=== PATIENT | female | born 1980 | race Caucasian/White ===

== ENCOUNTER 2017-05-12 11:53 | Inpatient (IN) | payer OTHER ==
[~2017-05-12] VITALS: Ht 160 cm; Wt 70.5 kg
[2017-05-12] MEDS ORDERED: LACTATED RINGERS 1,000 ML IV SCH ×2 (12:45→21:15)
[2017-05-12] MEDS ORDERED: D5%-LACTATED RINGERS 1,000 ML IV SCH (12:45)
[2017-05-12] MEDS ORDERED: OXYTOCIN 30U/ 0.9% NaCL 500ML 500 ML IV ONE (12:45)
[2017-05-12] MEDS ORDERED: FENTANYL PF 100 MCG/2ML IV PRN (13:00)
[2017-05-12] MEDS ORDERED: ONDANSETRON 2MG/ML, 2ML IVPush PRN (13:00)
[2017-05-12] MEDS ORDERED: CALCIUM CARBONATE 500 MG TAB.CHEW PO PRN (13:00)
[2017-05-12] MEDS ORDERED: FENTANYL PF 100 MCG/2ML IVPush PRN (13:00)
[2017-05-12 13:17] LABS: HEMATOCRIT 44.8 % (34.6-47.8); HEMOGLOBIN 14.9 g/dL (11.7-16.4); WHITE BLOOD COUNT 18.4 x10^3/uL (3.4-10)
[2017-05-12 13:32] VITALS: BP 131/80
[2017-05-12] MEDS ORDERED: LIDOCAINE 1%, 20ML ONE (13:35)
[2017-05-12] MEDS ORDERED: OXYTOCIN 30U/ 0.9% NaCL 500ML 500 ML ONE (13:36)
[2017-05-12] MEDS ORDERED: MISOPROSTOL 200 MCG TABLET ONE (13:36)
[2017-05-12] MEDS ORDERED: NEWBORN KIT ONE (13:36)
[2017-05-12 13:40] LABS: DIFF TOTAL CELLS COUNTED 100 CELL DIFF
[2017-05-12 13:42] LABS: VERIFY COUNTS? YES
[2017-05-12] MEDS ORDERED: PLEASE ENTER HEIGHT AND WEIGHT MC SCH (14:00)
[2017-05-12] MEDS ORDERED: SODIUM CHLORIDE FLUSH 10ML SYR IVF ONE (14:30)
[2017-05-12] MEDS ORDERED: SODIUM CHLORIDE FLUSH 10ML SYR IVF PRN (14:30)
[2017-05-12] MEDS ORDERED: LEVO75TA PO (14:34)
[2017-05-12] MEDS ORDERED: PREN1TAB25 PO (14:35)
[2017-05-12] MEDS ORDERED: FEXO1TAB25 PO (14:35)
[2017-05-12] MEDS ORDERED: OMEG1CAP34 PO (14:37)
[2017-05-12] MEDS ORDERED: FEXO60TA24 PO (14:45)
[2017-05-12] MEDS ORDERED: ONDANSETRON 2MG/ML, 2ML ONE (17:40)
[2017-05-12 19:36] VITALS: BP 128/80
[2017-05-12] MEDS ORDERED: FENTANYL PF 100 MCG/2ML ONE (19:54)
[2017-05-12] MEDS ORDERED: FENTANYL/BUPIV./NS/PF 250 ML EPIDCONT ONE (20:49)
[2017-05-12] MEDS ORDERED: LIDOCAINE/PF 1.5%-EPI 1:200K, 30ML ONE (20:49)
[2017-05-12] MEDS ORDERED: FENTANYL/BUPIV./NS/PF 250 ML EPIDCONT SCH (21:15)
[2017-05-12] MEDS ORDERED: LACTATED RINGERS 1,000 ML IVBOLUS PRN (21:30)
[2017-05-12] MEDS ORDERED: METOCLOPRAMIDE 5 MG/ML, 2ML ONE (22:30)
[2017-05-12] MEDS ORDERED: SODIUM CITRATE/CITRIC ACID 30 ML UDC ONE (22:31)
[2017-05-12] MEDS ORDERED: OXYTOCIN 30U/ 0.9% NaCL 500ML 500 ML IV SCH (23:39)
[2017-05-12] MEDS ORDERED: LIDOCAINE/MPF 2%-EPI 1:200K, 20 ML ONE (23:41)
[2017-05-12] MEDS ORDERED: HYDROmorphone 2 MG/ML, 1ML ONE (23:44)
[2017-05-13] MEDS ORDERED: METOCLOPRAMIDE 5 MG/ML, 2ML IV ONE
[2017-05-13] MEDS ORDERED: SODIUM CITRATE/CITRIC ACID 30 ML UDC PO ONE
[2017-05-13] MEDS ORDERED: MEPERIDINE/PF 50 MG/ML ONE (00:22)
[2017-05-13] MEDS ORDERED: OXYTOCIN 30U/ 0.9% NaCL 500ML 500 ML IV SCH (01:24)
[2017-05-13] MEDS ORDERED: LACTATED RINGERS 1,000 ML IV SCH ×2 (01:24)
[2017-05-13] MEDS ORDERED: ONDANSETRON 2MG/ML, 2ML IV PRN (01:30)
[2017-05-13] MEDS ORDERED: ACETAMINOPHEN 325 MG TABLET PO PRN (01:30)
[2017-05-13] MEDS ORDERED: MISOPROSTOL 200 MCG TABLET SL PRN (01:30)
[2017-05-13] MEDS ORDERED: CARBOPROST TROMETHAMINE 250 MCG/ML, 1ML IM PRN (01:30)
[2017-05-13] MEDS ORDERED: METOCLOPRAMIDE 5 MG/ML, 2ML IV PRN (01:30)
[2017-05-13] MEDS ORDERED: METHYLERGONOVINE 0.2 MG/ML IM PRN (01:30)
[2017-05-13] MEDS ORDERED: CALCIUM CARBONATE 500 MG TAB.CHEW PO PRN (01:30)
[2017-05-13] MEDS: OXYcodone/APAP 5/325MG TABLET PO PRN ×5 (03:23→20:39)
[2017-05-13 05:29] VITALS: BP 120/80
[2017-05-13 07:30] VITALS: BP 111/71
[2017-05-13] MEDS: DOCUSATE 100 MG CAPSULE PO PRN ×2 (07:33→20:39)
[2017-05-13] MEDS: PRENATAL VIT/IRON/FA 1 EACH TABLET PO SCH (09:00)
[2017-05-13] MEDS ORDERED: PRENATAL VIT/IRON/FA 1 EACH TABLET PO SCH (09:00)
[2017-05-13] MEDS ORDERED: NAPROXEN 250 MG TABLET PO PRN (09:30)
[2017-05-13 09:36] LABS: HEMATOCRIT 37.6 % (34.6-47.8); HEMOGLOBIN 12.6 g/dL (11.7-16.4); WHITE BLOOD COUNT 21.4 x10^3/uL (3.4-10)
[2017-05-13 15:11] VITALS: BP 132/78
[2017-05-13 20:45] VITALS: BP 119/72
[2017-05-14] MEDS: OXYcodone/APAP 5/325MG TABLET PO PRN ×3 (00:56→20:23)
[2017-05-14] MEDS: LEVOTHYROXINE 75 MCG TABLET PO SCH (05:06)
[2017-05-14 08:00] VITALS: BP 106/66
[2017-05-14] MEDS: DOCUSATE 100 MG CAPSULE PO PRN ×2 (08:56→20:24)
[2017-05-14] MEDS: OXYcodone/APAP 10/325MG TABLET PO PRN ×3 (08:56→16:37)
[2017-05-14] MEDS: PRENATAL VIT/IRON/FA 1 EACH TABLET PO SCH (09:00)
[2017-05-14 19:30] VITALS: BP 124/82
[2017-05-14] MEDS: SIMETHICONE 80 MG CHEW TAB PO PRN (20:24)
[2017-05-15] MEDS: OXYcodone/APAP 10/325MG TABLET PO PRN (02:37)
[2017-05-15] MEDS: SIMETHICONE 80 MG CHEW TAB PO PRN ×2 (02:45→08:30)
[2017-05-15] MEDS: LEVOTHYROXINE 75 MCG TABLET PO SCH (05:40)
[2017-05-15] MEDS: OXYcodone/APAP 5/325MG TABLET PO PRN ×2 (07:12→11:22)
[2017-05-15] MEDS: DOCUSATE 100 MG CAPSULE PO PRN (07:12)
[2017-05-15 07:15] VITALS: BP 119/76
[2017-05-15] MEDS ORDERED: OXYC-229 PO (07:52)
[2017-05-15] MEDS ORDERED: DOCU-30 PO (07:53)
[2017-05-15] MEDS: PRENATAL VIT/IRON/FA 1 EACH TABLET PO SCH (09:00)
== END 2017-05-15 12:55 | disposition home or self-care (01) | DRG 766 ==
LOC: LDOP 11:53 → LDIP 12:45 → 2NW 05-13 02:32
PROVIDERS: ADMIT Obstetrics & Gynecology Maternal & Fetal Medicine; ATTEND Obstetrics & Gynecology Maternal & Fetal Medicine
PROC: 10D00Z1 Extraction of Products of Conception, Low, Open Approach (ICD-10-PCS; principal; 2017-05-13)
DX: O76 Abnormality in fetal heart rate and rhythm complicating labor and delivery (principal); E03.9 Hypothyroidism, unspecified; O99.284 Endocrine, nutritional and metabolic diseases complicating childbirth; O48.0 Post-term pregnancy; O77.0 Labor and delivery complicated by meconium in amniotic fluid; Z37.0 Single live birth; Z3A.41 41 weeks gestation of pregnancy; Z79.899 Other long term (current) drug therapy; Z88.6 Allergy status to analgesic agent
CPT/HCPCS: 36415; 82803; 85025; 86850; 86900; 88305; 89060; J1170; J2175; J2405; J3010; J7121; Q0114

== ENCOUNTER → 2018-02-27 | Outpatient (CLI) | payer OTHER ==
[~2018-02-27] MED LIST: DOCU-131 PO; FEXO1TAB25 PO; FEXO60TA24 PO; LEVO75TA PO; OMEG1CAP34 PO; OXYC-307 PO; PREN1TAB25 PO
[2018-02-27 08:09] LABS: BASOPHILS % (AUTO) 2 % (0-1); EOSINOPHILS # (AUTO) 0.34 x10^3/uL (0-0.4); EOSINOPHILS % (AUTO) 5 % (1-7); LYMPHOCYTES # (AUTO) 2.34 x10^3/uL (1-3.4); LYMPHOCYTES % (AUTO) 35 % (22-44); MD NO; MEAN CORPUSCULAR HEMOGLOBIN 32.8 pg (27.0-34.8); MEAN CORPUSCULAR HGB CONC 34.4 g/dL (32.4-35.8); MEAN CORPUSCULAR VOLUME 95.4 fL (80-100); MEAN PLATELET VOLUME 8.1 fL (7.4-10.4); MONOCYTES # (AUTO) 0.46 x10^3/uL (0.2-0.8); MONOCYTES % (AUTO) 7 % (2-9); NEUTROPHILS # (AUTO) 3.52 x10^3/uL (1.8-6.8); NEUTROPHILS % (AUTO) 52 % (42-75); PLATELET COUNT 284 x10^3/uL (130-400); RED BLOOD COUNT 4.42 x10^6/uL (3.82-5.3); RED CELL DISTRIBUTION WIDTH 12.9 % (9.6-15.2)
[2018-02-27 08:20] LABS: ALANINE AMINOTRANSFERASE 33 U/L (12-78); ALBUMIN 3.8 g/dL (3.4-5.0); ANION GAP 6 mmol/L (5-15); CALCIUM 8.9 mg/dL (8.5-10.1); CHLORIDE 111 mmol/L (98-107); CHOLESTEROL, TOTAL 185 mg/dL (140-239); CREATININE 0.82 mg/dL (0.55-1.02)
[2018-02-27 08:22] LABS: ALKALINE PHOSPHATASE 79 U/L (45-117); BILIRUBIN,TOTAL 0.4 mg/dL (0.2-1.0); CHOL/HDL RATIO 2.7; HDL CHOL % 37 % (28-40); HDL CHOLESTEROL (DIRECT) 68 mg/dL (40-60); LDL CHOLESTEROL,CALCULATED 106 mg/dL (54-169); LDL/HDL RATIO 1.6 (0.5-3.0); TOTAL PROTEIN 7.1 g/dL (6.4-8.2); TRIGLYCERIDES 55 mg/dL (50-200); VLDL CHOLESTEROL 11 mg/dL (0-25)
== END | disposition home or self-care (01) ==
LOC: LAB 07:52
PROVIDERS: ATTEND Physician Assistant Medical
DX: Z00.01 Encounter for general adult medical examination with abnormal findings (principal); E03.9 Hypothyroidism, unspecified
CPT/HCPCS: 36415; 80053; 80061; 85025

== ENCOUNTER → 2018-11-21 | Outpatient (CLI) | payer OTHER | END | disposition home or self-care (01) | LOC: LAB 15:39 | PROVIDERS: ATTEND Physician Assistant Medical | DX: E03.9 Hypothyroidism, unspecified (principal); R79.89 Other specified abnormal findings of blood chemistry | CPT/HCPCS: 36415; 84443 ==

== ENCOUNTER 2019-05-02 15:41 | Outpatient (CLI) | payer OTHER | END 2019-05-02 23:59 | disposition home or self-care (01) | LOC: LAB 15:41 | PROVIDERS: ATTEND Family Medicine | DX: E03.9 Hypothyroidism, unspecified (principal) | CPT/HCPCS: 36415; 84443 ==

== ENCOUNTER → 2019-09-20 | Outpatient (CLI) | payer OTHER ==
[2019-09-20 09:32] LABS: BASOPHILS # (AUTO) 0.04 x10^3/uL (0-0.1); BASOPHILS % (AUTO) 0 % (0-1); EOSINOPHILS # (AUTO) 0.33 x10^3/uL (0-0.4); EOSINOPHILS % (AUTO) 3 % (1-7); LYMPHOCYTES # (AUTO) 1.77 x10^3/uL (1-3.4); LYMPHOCYTES % (AUTO) 13 % (22-44); MD NO; MEAN CORPUSCULAR HEMOGLOBIN 34.2 pg (27.0-34.8); MEAN CORPUSCULAR HGB CONC 33.5 g/dL (32.4-35.8); MEAN CORPUSCULAR VOLUME 102.1 fL (80-100); MEAN PLATELET VOLUME 8.1 fL (7.4-10.4); MONOCYTES # (AUTO) 0.62 x10^3/uL (0.2-0.8); MONOCYTES % (AUTO) 5 % (2-9); NEUTROPHILS # (AUTO) 10.46 x10^3/uL (1.8-6.8); NEUTROPHILS % (AUTO) 79 % (42-75); PLATELET COUNT 279 x10^3/uL (130-400); RED CELL DISTRIBUTION WIDTH 14.3 % (9.6-15.2)
== END | disposition home or self-care (01) ==
LOC: LAB 08:49
PROVIDERS: ATTEND Obstetrics & Gynecology Maternal & Fetal Medicine
DX: Z34.82 Encounter for supervision of other normal pregnancy, second trimester (principal); Z3A.00 Weeks of gestation of pregnancy not specified
CPT/HCPCS: 36415; 82950; 85025; 86592

== ENCOUNTER 2019-12-29 10:11 | Inpatient (IN) | payer OTHER ==
[~2019-12-29] VITALS: Ht 160 cm; Wt 72.7 kg
[2019-12-29] MEDS ORDERED: LACTATED RINGERS 1,000 ML IV SCH (10:52)
[2019-12-29] MEDS ORDERED: LACTATED RINGERS 1,000 ML IVBOLUS ONE (11:00)
[2019-12-29] MEDS ORDERED: METOCLOPRAMIDE 5 MG/ML, 2ML IV ONE (11:00)
[2019-12-29] MEDS ORDERED: SODIUM CITRATE/CITRIC ACID 30 ML UDC PO ONE (11:00)
[2019-12-29] MEDS ORDERED: NEWBORN KIT ONE (11:01)
[2019-12-29] MEDS ORDERED: METOCLOPRAMIDE 5 MG/ML, 2ML ONE (11:02)
[2019-12-29] MEDS ORDERED: SODIUM CITRATE/CITRIC ACID 30 ML UDC ONE (11:02)
[2019-12-29] MEDS ORDERED: OXYTOCIN 30U/ 0.9% NaCL 500ML 500 ML ONE (11:02)
[2019-12-29 11:25] LABS: BASOPHILS # (AUTO) 0.04 x10^3/uL (0-0.1); BASOPHILS % (AUTO) 0 % (0-1); EOSINOPHILS # (AUTO) 0.06 x10^3/uL (0-0.4); EOSINOPHILS % (AUTO) 1 % (1-7); LYMPHOCYTES % (AUTO) 17 % (22-44); MD NO; MEAN CORPUSCULAR HEMOGLOBIN 34.2 pg (27.0-34.8); MEAN CORPUSCULAR HGB CONC 33.7 g/dL (32.4-35.8); MEAN CORPUSCULAR VOLUME 101.6 fL (80-100); MEAN PLATELET VOLUME 10.2 fL (7.4-10.4); MONOCYTES # (AUTO) 0.61 x10^3/uL (0.2-0.8); MONOCYTES % (AUTO) 5 % (2-9); NEUTROPHILS # (AUTO) 9.25 x10^3/uL (1.8-6.8); NEUTROPHILS % (AUTO) 77 % (42-75); PLATELET COUNT 213 x10^3/uL (130-400); RED BLOOD COUNT 4.11 x10^6/uL (3.82-5.3); RED CELL DISTRIBUTION WIDTH 14.3 % (9.6-15.2)
[2019-12-29] MEDS ORDERED: FENTANYL PF 100 MCG/2ML ONE (11:46)
[2019-12-29] MEDS ORDERED: OXYTOCIN 10 UNITS/ML, 1ML ONE ×4 (11:47)
[2019-12-29] MEDS ORDERED: CEFAZOLIN 1,000 MG ONE ×2 (11:47)
[2019-12-29] MEDS ORDERED: EPHEDRINE 50 MG/ML, 1ML ONE (12:22)
[2019-12-29] MEDS ORDERED: KETOROLAC 30 MG/1 ML ONE (12:52)
[2019-12-29] MEDS ORDERED: EPHEDRINE 50 MG/ML, 1ML IVPush PRN (13:30)
[2019-12-29] MEDS ORDERED: MORPHINE SULFATE 4 MG/ML, 1ML IVPush PRN (13:30)
[2019-12-29] MEDS ORDERED: LABETALOL 5MG/ML, 20ML IV PRN (13:30)
[2019-12-29] MEDS ORDERED: OXYcodone 5 MG/5 ML ORAL.SOL UDC PO PRN (13:30)
[2019-12-29] MEDS ORDERED: METHYLERGONOVINE 0.2 MG/ML IM PRN (13:30)
[2019-12-29] MEDS ORDERED: DIPH,PERTUSS(ACELL),TET VAC/PF NC IM-VACC PRN (13:30)
[2019-12-29] MEDS ORDERED: CARBOPROST TROMETHAMINE 250 MCG/ML, 1ML IM PRN (13:30)
[2019-12-29] MEDS ORDERED: OXYcodone/APAP 5/325MG TABLET PO PRN (13:30)
[2019-12-29] MEDS ORDERED: FENTANYL PF 100 MCG/2ML IV PRN (13:30)
[2019-12-29] MEDS ORDERED: DIPHENHYDRAMINE 50 MG/ML, 1ML IVPush PRN (13:30)
[2019-12-29] MEDS ORDERED: ACETAMINOPHEN 325 MG TABLET PO PRN ×3 (13:30)
[2019-12-29] MEDS ORDERED: ONDANSETRON 2MG/ML, 2ML IV PRN ×2 (13:30)
[2019-12-29] MEDS ORDERED: PROMETHAZINE 25 MG/ML, 1ML IV PRN (13:30)
[2019-12-29] MEDS ORDERED: DEXAMETHASONE 4 MG/ML, 1ML IV PRN (13:30)
[2019-12-29] MEDS ORDERED: MISOPROSTOL 200 MCG TABLET PR PRN (13:30)
[2019-12-29] MEDS ORDERED: RHOGAM FROM BLOOD BANK 1 NOTE EA IM/IV ONE (13:30)
[2019-12-29] MEDS: OXYTOCIN 30U/ 0.9% NaCL 500ML 500 ML IV SCH ×2 (14:06→23:11)
[2019-12-29 15:30] VITALS: BP 122/78
[2019-12-29] MEDS: OXYcodone/APAP 5/325MG TABLET PO PRN (18:08)
[2019-12-29] MEDS: KETOROLAC 30 MG/1 ML IVPush SCH (19:33)
[2019-12-29 20:06] VITALS: BP 123/71
[2019-12-29 20:44] LABS: BASOPHILS # (AUTO) 0.03 x10^3/uL (0-0.1); BASOPHILS % (AUTO) 0 % (0-1); EOSINOPHILS # (AUTO) 0.28 x10^3/uL (0-0.4); EOSINOPHILS % (AUTO) 2 % (1-7); LYMPHOCYTES # (AUTO) 1.79 x10^3/uL (1-3.4); LYMPHOCYTES % (AUTO) 14 % (22-44); MD NO; MEAN CORPUSCULAR HEMOGLOBIN 35.1 pg (27.0-34.8); MEAN CORPUSCULAR HGB CONC 34.6 g/dL (32.4-35.8); MEAN CORPUSCULAR VOLUME 101.2 fL (80-100); MEAN PLATELET VOLUME 9.7 fL (7.4-10.4); MONOCYTES # (AUTO) 0.56 x10^3/uL (0.2-0.8); MONOCYTES % (AUTO) 4 % (2-9); NEUTROPHILS # (AUTO) 10.11 x10^3/uL (1.8-6.8); NEUTROPHILS % (AUTO) 79 % (42-75); PLATELET COUNT 165 x10^3/uL (130-400); RED BLOOD COUNT 3.33 x10^6/uL (3.82-5.3); RED CELL DISTRIBUTION WIDTH 14.1 % (9.6-15.2)
[2019-12-30] VITALS: BP 114/64
[2019-12-30] MEDS: KETOROLAC 30 MG/1 ML IVPush SCH ×4 (01:29→20:50)
[2019-12-30] MEDS: OXYcodone/APAP 5/325MG TABLET PO PRN ×5 (03:32→20:34)
[2019-12-30 03:37] VITALS: BP 129/78
[2019-12-30] MEDS: LEVOTHYROXINE 75 MCG TABLET PO SCH (05:40)
[2019-12-30] MEDS: DOCUSATE 100 MG CAPSULE PO PRN ×2 (07:27→20:41)
[2019-12-30] MEDS: PRENATAL VIT/IRON/FA 1 EACH TABLET PO SCH (07:28)
[2019-12-30 07:57] VITALS: BP 145/84
[2019-12-30] MEDS: OXYTOCIN 30U/ 0.9% NaCL 500ML 500 ML IV SCH ×2 (09:11→19:11)
[2019-12-30 12:15] VITALS: BP 122/78
[2019-12-30] MEDS: SIMETHICONE 80 MG CHEW TAB PO PRN (16:34)
[2019-12-30 20:30] VITALS: BP 123/84
[2019-12-31] MEDS: SIMETHICONE 80 MG CHEW TAB PO PRN ×2 (01:07→08:24)
[2019-12-31] MEDS: KETOROLAC 30 MG/1 ML IVPush SCH ×2 (02:33→08:30)
[2019-12-31] MEDS: OXYTOCIN 30U/ 0.9% NaCL 500ML 500 ML IV SCH (05:11)
[2019-12-31] MEDS: LEVOTHYROXINE 75 MCG TABLET PO SCH (06:18)
[2019-12-31 07:45] VITALS: BP 138/83
[2019-12-31] MEDS: DOCUSATE 100 MG CAPSULE PO PRN (08:24)
[2019-12-31] MEDS: OXYcodone/APAP 5/325MG TABLET PO PRN ×2 (08:30→12:46)
[2019-12-31] MEDS: PRENATAL VIT/IRON/FA 1 EACH TABLET PO SCH (09:00)
[2019-12-31] MEDS ORDERED: OXYC-302 PO ×2 (11:25→11:26)
[2019-12-31] MEDS ORDERED: DOCU-131 PO (11:27)
== END 2019-12-31 13:00 | disposition home or self-care (01) | DRG 785 ==
LOC: LDIP 10:11 → 2NW 15:10
PROVIDERS: ADMIT Obstetrics & Gynecology Maternal & Fetal Medicine; ATTEND Obstetrics & Gynecology Maternal & Fetal Medicine
PROC: 10D00Z1 Extraction of Products of Conception, Low, Open Approach (ICD-10-PCS; principal; 2019-12-29)
PROC: 0UB70ZZ Excision of Bilateral Fallopian Tubes, Open Approach (ICD-10-PCS; 2019-12-29)
DX: O34.211 Maternal care for low transverse scar from previous cesarean delivery (principal); E03.9 Hypothyroidism, unspecified; O99.284 Endocrine, nutritional and metabolic diseases complicating childbirth; O99.824 Streptococcus B carrier state complicating childbirth; Z37.0 Single live birth; Z3A.39 39 weeks gestation of pregnancy
CPT/HCPCS: 36415; 85025; 86592; 86850; 86900; 88302; G0378; J0690; J1885; J3010; J2590; J2765; J7120

== ENCOUNTER 2020-07-06 12:47 | Outpatient (CLI) | payer OTHER ==
[~2020-07-06 12:47] MED LIST changes: +OXYC-302 PO
== END 2020-07-06 23:59 | disposition home or self-care (01) ==
LOC: LAB 12:47
PROVIDERS: ATTEND Family Medicine
DX: E03.9 Hypothyroidism, unspecified (principal)
CPT/HCPCS: 36415; 84443